=== PATIENT | female | born 1975 | race Two or more races ===

== ENCOUNTER 2019-05-01 11:29 | Emergency (ER) | payer SELFPAY ==
[~2019-05-01] VITALS: Ht 162.6 cm; Wt 66.0 kg
[2019-05-01 12:00] VITALS: BP 124/80
--- NOTE | 2019-05-01 12:09 | PHYS DOC ---
Adult General Chief Complaint Chief Complaint: LACERATION/AVULSION HPI HPI Patient is a 44 year old [place] Citizen-speaking female who presents to the ED today with laceration to the right index finger, laceration has been present since last night, also complaining of a rash to bilateral upper extremities. She believes the rash is a result of the job she does. She works at a [employer] for [place] Review of Systems Review of Systems Constitutional: Denies fever or chills [] Musculoskeletal: Denies back pain or joint pain [] Integument: Reports right index finger laceration, reports rash to bilateral upper extremities. Neurologic: Denies headache, focal weakness or sensory changes [] All other systems were reviewed and found to be within normal limits, except as documented in this note. Allergies Allergies Allergies Coded Allergies Type Severity Reaction Last Updated Verified No Known Drug Allergies 05/01/19 No Physical Exam Physical Exam Constitutional: Well developed, well nourished, no acute distress, non-toxic appearance. [] Skin: Right lateral index finger proximal end, lateral aspect with a laceration approximately 2 cm long, laceration with no bleeding, no obvious tendon involvement. Patient able to flex and extend the finger at the MIP PIP and DIP joints. Adequate radius sensation to the right index finger. Patient also noted for small amount of erythematous papular rash to bilateral upper extremities. Back: No tenderness, no CVA tenderness. [] Extremities: No tenderness, no cyanosis, no clubbing, ROM intact, no edema. [] Neurologic: Alert and oriented X 3, normal motor function, normal sensory function, no focal deficits noted. [] Psychologic: Affect normal, judgement normal, mood normal. [] Current Patient Data Vital Signs Vital Signs Date Time Temp Pulse Resp B/P (MAP) Pulse Ox O2 Delivery O2 Flow Rate FiO2 05/01/19 12:00 97.8 63 18 124/80 (95) 99 Room Air 97.8 EKG EKG [] Radiology/Procedures Radiology/Procedures [] Course & Med Decision Making Course & Med Decision Making Pertinent Labs and Imaging studies reviewed. (See chart for details) This is a 44-year-old female patient presenting to the ED today with right index finger laceration that occurred yesterday. Laceration was closed with Dermabond by me. Tetanus was updated. Wound care instructions and return precautions provided. Also noted for a rash to bilateral upper extremities, rash has been present for 6 months. Discharged with triamcinolone cream. Follow-up with industrial waste treatment technician. Lindsey Disclaimer Lindsey Disclaimer This electronic medical record was generated, in whole or in part, using a voice recognition dictation system. Departure Departure Impression: Primary Impression: Contact dermatitis Additional Impression: Laceration of index finger Disposition: HOME, SELF-CARE Condition: STABLE Referrals: UNKNOWN PCP NAME (PCP) follow up in 1 week with your doctor Patient Instructions: Contact Dermatitis, [id number] Additional Instructions: Please keep the laceration clean and dry Please use the cream prescribed for the rash as ordered Monitor the area for any signs of infection and return to the ED if they occur Scripts Triamcinolone Acetonide (TRIAMCINOLONE ACETONIDE 0.1% OINT) 15 Gm Oint...g. 1 LAMBERT TP BID for rash, #1 TUBE Prov: ALEXIA SHRESTHA APRN 05/01/19 Problem Qualifiers Primary Impression: Contact dermatitis Contact dermatitis type: unspecified Contact dermatitis trigger: unspecified trigger Qualified Codes: L25.9 - Unspecified contact dermatitis, unspecified cause Additional Impression: Laceration of index finger Encounter type: initial encounter Damage to nail status: without damage Foreign body presence: without foreign body Laterality: right Qualified Codes: S61.210A - Laceration without foreign body of right index finger without damage to nail, initial encounter ALEXIA SHRESTHA APRN May 01, 2019 12:09
[2019-05-01] MEDS ORDERED: DIPHTH,PERTUSS(ACELL),TET TOX 0.5 ML DISP.SYRIN. VAX IM ONE (12:15)
[2019-05-01] MEDS ORDERED: TRIA15OI TP (12:19)
== END 2019-05-01 12:26 | disposition home or self-care (01) ==
LOC: ER 11:29
DX: S61.210A Laceration without foreign body of right index finger without damage to nail, initial encounter (principal); R21 Rash and other nonspecific skin eruption; L25.9 Unspecified contact dermatitis, unspecified cause; X58.XXXA Exposure to other specified factors, initial encounter; Y93.89 Activity, other specified; Y92.89 Other specified places as the place of occurrence of the external cause; Y99.0 Civilian activity done for income or pay
CPT/HCPCS: 12001; 90471; 90715; 99283